=== PATIENT | female | born 1995 | race American Indian/Alaskan Native ===

== ENCOUNTER 2017-11-23 10:15 | Inpatient (IN) | payer MEDICAID ==
--- NOTE | 2017-11-23 11:00 | History and Physical Report ---
History of Present Illness Date of examination: 11/23/17 Chief complaint: Spontaneous rupture of membranes at 12 History of present illness: A 2-year-old at 39+5 weeks presents status post ruptured membranes, she is a [facility] patient. course has been unremarkable. She is GBS negative. 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 denies: smoking, alcohol abuse, prescription drug abuse, IV drug use - Obstetrical History Expected Date of Delivery: 11/27/17 Actual Gestation: 39 Week(s) 3 Day(s) : 1 Para: 0 Review of Systems Constitutional: no fever, no chills, no lethargy, no chronic headaches Cardiovascular: no chest pain, no orthopnea, no palpitations, no syncope, no lightheadedness, no shortness of breath, no dyspnea on exertion, no high blood pressure Respiratory: no cough, no cough with sputum, no excessive sputum, no shortness of breath, no dyspnea on exertion Gastrointestinal: no abdominal pain, no nausea, no vomiting Genitourinary: leakage of fluid, contractions, no vaginal bleeding, no vaginal discharge - Vital Signs Vital signs: Vital Signs Pulse BP Pulse Ox 119 H 130/79 98 11/23/17 10:33 11/23/17 10:33 11/23/17 10:33 Temp Pulse Resp BP Pulse Ox 111 H 130/79 97 11/23/17 10:58 11/23/17 10:33 11/23/17 10:58 - Physical Exam Cardiovascular: Regular rate, Normal S1, Normal S2 Lungs: Positive: Clear to auscultation, Normal air movement Abdomen: Positive: normal appearance, soft. Negative: distention, tenderness, guarding, rigidity Genitourinary (Female): Positive: normal external genitalia Uterus: Positive: enlarged (EFW ~ 3700). Negative: tender Extremities: Positive: normal - Obstetrical FHR: category 1 Cervical Dilatation: 3.5 (Per RN) Results All other labs normal. Assessment and Plan A: 22-year-old at 39 weeks s/p SROM -Cat 1 tracing P: -Admit -Routine labs -Expectant mgt -Anticipate normal vaginal delivery - Patient Problems (1) 39 weeks gestation of Current Visit: Yes Status: Acute (2) Spontaneous rupture of amniotic membranes Current Visit: Yes Status: Acute
[2017-11-23] MEDS ORDERED: SUBLIMAZE IV PRN (11:02)
[2017-11-23] MEDS ORDERED: XYLOCAINE 2% INFILTRATI ONE (11:02)
[2017-11-23] MEDS ORDERED: BRETHINE IVP PRN (11:02)
[2017-11-23] MEDS ORDERED: BRETHINE SUB-Q PRN (11:02)
[2017-11-23] MEDS ORDERED: PHENERGAN PO PRN (11:02)
[2017-11-23] MEDS ORDERED: ePHEDrine SULFATE IV PRN (11:02)
[2017-11-23] MEDS ORDERED: MINERAL OIL PO PRN (11:02)
[2017-11-23 11:18] LABS: Hematocrit 41.2 % (30.3-42.9); Hemoglobin 13.8 gm/dl (10.1-14.3); Mean Corpuscular HGB Conc 33 % (30-34); Mean Corpuscular Hemoglobin 27 pg (28-32); Mean Corpuscular Volume 81 fl (79-97); Platelet Count 273 K/mm3 (140-440); Red Blood Count 5.12 M/mm3 (3.65-5.03); Red Cell Distribution Width 15.9 % (13.2-15.2)
[2017-11-23] MEDS ORDERED: PITOCin/NS 20 UNIT/1000ML DRIP 20 UNITS/1,000 ML BAG IV SCH (12:00)
[2017-11-23] MEDS ORDERED: PITOCin/NS 30 UNIT/500ML 30 UNITS/500 ML BAG IV SCH (12:00)
[2017-11-23] MEDS ORDERED: POLYCILLIN/NS 2 GM/100 ML 2 GM/100 ML BAG IV ONE (12:30)
[2017-11-23] MEDS: ZOFRAN IV PRN (13:43)
[2017-11-23] MEDS: LACTATED RINGERS 1,000 ML IV SCH ×2 (13:44→21:25)
[2017-11-23] MEDS ORDERED: POLYCILLIN/NS 1 GM/50 ML 1 GM/50 ML BAG IV SCH (16:30)
--- NOTE | 2017-11-23 18:09 | Progress Note ---
Assessment and Plan - Patient Problems (1) 39 weeks gestation of Onset Date: 11/23/17 Current Visit: Yes Status: Acute Plan to address problem: A: IUP @ 39 5/7 weeks in labor P: Continue with pitocin augmentation of labor Expectant vaginal delivery Subjective - Subjective Date of service: 11/23/17 Principal diagnosis: IUP @ 39 5/7 weeks Interval history: Pt is currently on pitocin 8mu/min and cherelle q 2-3 mins with IV sedation Patient reports: new complaints, loss of fluid, movement normal, contractions, no vaginal bleeding Objective - Vital Signs Vital Signs: Vital Signs - 12hr 11/23/17 11/23/17 11/23/17 10:33 10:38 10:43 Temperature Pulse Rate 119 H 108 H 116 H Respiratory Rate Blood Pressure 130/79 O2 Sat by Pulse 98 97 98 Oximetry 11/23/17 11/23/17 11/23/17 10:48 10:53 10:58 Temperature Pulse Rate 107 H 96 H 111 H Respiratory Rate Blood Pressure O2 Sat by Pulse 98 98 97 Oximetry 11/23/17 11/23/17 11/23/17 11:03 11:12 11:19 Temperature 97.9 F Pulse Rate 118 H 110 H Respiratory 18 Rate Blood Pressure O2 Sat by Pulse 96 97 Oximetry 11/23/17 11/23/17 11/23/17 11:20 11:24 11:29 Temperature Pulse Rate 110 H 121 H 112 H Respiratory Rate Blood Pressure 134/75 O2 Sat by Pulse 97 97 Oximetry 11/23/17 11/23/17 11/23/17 11:34 11:39 11:44 Temperature Pulse Rate 112 H 107 H 115 H Respiratory Rate Blood Pressure O2 Sat by Pulse 96 98 95 Oximetry 11/23/17 11/23/17 11/23/17 11:49 11:54 11:59 Temperature Pulse Rate 110 H 109 H 116 H Respiratory Rate Blood Pressure O2 Sat by Pulse 97 97 96 Oximetry 11/23/17 11/23/17 11/23/17 12:04 12:09 12:14 Temperature Pulse Rate 109 H 116 H 111 H Respiratory Rate Blood Pressure O2 Sat by Pulse 97 97 97 Oximetry 11/23/17 11/23/17 11/23/17 12:19 12:24 12:29 Temperature Pulse Rate 121 H 126 H 120 H Respiratory Rate Blood Pressure O2 Sat by Pulse 97 96 96 Oximetry 11/23/17 11/23/17 11/23/17 12:34 12:39 12:44 Temperature Pulse Rate 121 H 109 H 113 H Respiratory Rate Blood Pressure O2 Sat by Pulse 97 95 98 Oximetry 11/23/17 11/23/17 11/23/17 12:49 12:54 12:59 Temperature Pulse Rate 108 H 119 H 112 H Respiratory Rate Blood Pressure O2 Sat by Pulse 97 98 97 Oximetry 11/23/17 11/23/17 11/23/17 13:04 13:09 13:14 Temperature Pulse Rate 111 H 117 H 115 H Respiratory Rate Blood Pressure O2 Sat by Pulse 98 97 97 Oximetry 11/23/17 11/23/17 11/23/17 13:19 13:24 13:29 Temperature Pulse Rate 118 H 125 H 110 H Respiratory Rate Blood Pressure O2 Sat by Pulse 98 96 96 Oximetry 11/23/17 11/23/17 11/23/17 13:34 13:39 13:44 Temperature Pulse Rate 104 H 113 H 100 H Respiratory Rate Blood Pressure O2 Sat by Pulse 96 96 97 Oximetry 11/23/17 11/23/17 11/23/17 14:51 14:56 15:01 Temperature Pulse Rate 105 H 103 H 101 H Respiratory Rate Blood Pressure O2 Sat by Pulse 96 97 97 Oximetry 11/23/17 11/23/17 11/23/17 15:06 15:11 15:16 Temperature Pulse Rate 102 H 107 H 107 H Respiratory Rate Blood Pressure O2 Sat by Pulse 96 96 97 Oximetry 11/23/17 11/23/17 11/23/17 15:21 15:26 15:31 Temperature Pulse Rate 109 H 115 H 114 H Respiratory Rate Blood Pressure O2 Sat by Pulse 97 96 96 Oximetry 11/23/17 11/23/17 11/23/17 15:36 15:41 15:46 Temperature Pulse Rate 111 H 112 H 105 H Respiratory Rate Blood Pressure O2 Sat by Pulse 97 96 97 Oximetry 11/23/17 11/23/17 11/23/17 15:51 15:56 16:01 Temperature Pulse Rate 115 H 115 H 100 H Respiratory Rate Blood Pressure O2 Sat by Pulse 97 96 96 Oximetry 11/23/17 11/23/17 11/23/17 16:06 16:11 16:16 Temperature Pulse Rate 110 H 110 H 116 H Respiratory Rate Blood Pressure O2 Sat by Pulse 97 97 97 Oximetry 11/23/17 11/23/17 11/23/17 16:21 16:26 16:31 Temperature Pulse Rate 105 H 111 H 100 H Respiratory Rate Blood Pressure O2 Sat by Pulse 98 97 97 Oximetry 11/23/17 11/23/17 11/23/17 16:36 16:41 16:46 Temperature Pulse Rate 106 H 111 H 111 H Respiratory Rate Blood Pressure O2 Sat by Pulse 97 96 94 Oximetry 11/23/17 11/23/17 11/23/17 16:51 16:56 17:01 Temperature Pulse Rate 124 H 109 H 109 H Respiratory Rate Blood Pressure O2 Sat by Pulse 97 97 97 Oximetry 11/23/17 11/23/17 11/23/17 17:06 17:11 17:16 Temperature Pulse Rate 106 H 113 H 116 H Respiratory Rate Blood Pressure O2 Sat by Pulse 95 96 96 Oximetry 11/23/17 11/23/17 11/23/17 17:21 17:26 17:31 Temperature Pulse Rate 124 H 115 H 109 H Respiratory Rate Blood Pressure O2 Sat by Pulse 96 96 97 Oximetry 11/23/17 11/23/17 11/23/17 17:36 17:41 17:46 Temperature Pulse Rate 135 H 116 H 122 H Respiratory Rate Blood Pressure O2 Sat by Pulse 97 97 97 Oximetry 11/23/17 11/23/17 11/23/17 17:51 17:56 18:01 Temperature Pulse Rate 118 H 125 H 139 H Respiratory Rate Blood Pressure O2 Sat by Pulse 96 96 94 Oximetry 11/23/17 18:06 Temperature Pulse Rate 137 H Respiratory Rate Blood Pressure O2 Sat by Pulse 96 Oximetry - Exam Breasts: deferred Cardiovascular: Regular rate Lungs: Clear to auscultation Abdomen: Present: normal appearance, soft Uterus: Present: normal FHR: category 1 Uterine Contraction Monitor Mode: External Cervical Dilatation: 2.5 Cervical Effacement Percentage: 80 station: -2 Uterine Contraction Pattern: Regular Uterine Tone Measurement Phase: Contraction Uterine Contraction Intensity: Moderate - Labs Labs: Abnormal Labs 11/23/17 10:55 RBC 5.12 H MCH 27 L RDW 15.9 H Laboratory Results - last 24 hr 11/23/17 11/23/17 11/23/17 10:55 10:55 10:55 WBC 9.9 RBC 5.12 H Hgb 13.8 Hct 41.2 MCV 81 MCH 27 L MCHC 33 RDW 15.9 H Plt Count 273 RPR Nonreactive Blood Type B POSITIVE Antibody Screen Negative
[2017-11-23] MEDS: ePHEDrine SULFATE IV PRN ×2 (21:56→22:06)
[2017-11-23] MEDS ORDERED: NARCAN 2 MG/2 ML IV PRN (21:57)
--- NOTE | 2017-11-23 21:57 | Anesthesia Consultation ---
Anesthesia Consult and Med Hx Date of service: 11/23/17 - Airway Anesthetic Teeth Evaluation: Good ROM Head & Neck: Adequate Mental/Hyoid Distance: Adequate Mallampati Class: Class II Intubation Access Assessment: Good - Pulmonary Exam CTA: Yes - Cardiac Exam Cardiac Exam: No Murmur - Pre-Operative Health Status ASA Pre-Surgery Classification: ASA2 Proposed Anesthetic Plan: Epidural - Pulmonary Hx Asthma: No COPD: No Hx Pneumonia: No - Cardiovascular System Hx Hypertension: No - Central Nervous System Hx Seizures: No Hx Psychiatric Problems: No - Endocrine Hx Renal Disease: No Hx End Stage Renal Disease: No Hx Hypothyroidism: No Hx Hyperthyroidism: No - Hematic Hx Sickle Cell Disease: No - Other Systems Hx Alcohol Use: No
[2017-11-23] MEDS ORDERED: fentaNYL-BUPIV 2 MCG/ML-0.125% 200 MCG/100 ML BAG EPIDURAL SCH (22:00)
[2017-11-24] MEDS ORDERED: TYLENOL PO ONE (00:50)
[2017-11-24] MEDS: POLYCILLIN/NS 1 GM/50 ML 1 GM/50 ML BAG IV SCH ×2 (01:30→07:19)
[2017-11-24] MEDS: ZOFRAN IV PRN (02:44)
[2017-11-24] MEDS: LACTATED RINGERS 1,000 ML IV SCH ×3 (04:18→20:44)
[2017-11-24] MEDS ORDERED: ceFAZolin 1 GM in NACL 0.9% 20 ML IV SCH (06:00)
[2017-11-24] MEDS ORDERED: BICITRA PO ONE (08:38)
[2017-11-24] MEDS ORDERED: REGLAN IV ONE (08:38)
[2017-11-24] MEDS ORDERED: PEPCID IV ONE (08:38)
--- NOTE | 2017-11-24 08:47 | Progress Note ---
Assessment and Plan - Patient Problems (1) 39 weeks gestation of Onset Date: 11/23/17 Current Visit: Yes Status: Acute Plan to address problem: A: IUP @ 39 6/7 weeks in labor Failure to progress Chorioamnionitis P: Will proceed with an Operative delivery Subjective - Subjective Date of service: 11/24/17 Principal diagnosis: IUP @ 39 6/7 weeks; Chorio; FTP Interval history: Pt is currently on pitocin 8mu/min and cherelle q 2-[address] in [address]. Patient reports: new complaints (fever), loss of fluid, movement normal, contractions, no vaginal bleeding Objective - Vital Signs Vital Signs: Vital Signs - 12hr 11/23/17 11/23/17 11/23/17 20:46 20:47 20:51 Temperature Pulse Rate 119 H 121 H 124 H Respiratory Rate Blood Pressure Blood Pressure [Left] O2 Sat by Pulse 95 93 97 Oximetry 11/23/17 11/23/17 11/23/17 20:56 20:57 21:01 Temperature Pulse Rate 120 H 121 H 117 H Respiratory Rate Blood Pressure Blood Pressure [Left] O2 Sat by Pulse 96 94 93 Oximetry 11/23/17 11/23/17 11/23/17 21:03 21:06 21:20 Temperature Pulse Rate 114 H 122 H 128 H Respiratory Rate Blood Pressure Blood Pressure [Left] O2 Sat by Pulse 94 96 98 Oximetry 11/23/17 11/23/17 11/23/17 21:24 21:25 21:30 Temperature 98.6 F Pulse Rate 117 H 125 H 134 H Respiratory 20 Rate Blood Pressure 144/85 Blood Pressure [Left] O2 Sat by Pulse 97 97 Oximetry 11/23/17 11/23/17 11/23/17 21:35 21:40 21:45 Temperature Pulse Rate 123 H 138 H 138 H Respiratory Rate Blood Pressure Blood Pressure [Left] O2 Sat by Pulse 98 97 97 Oximetry 11/23/17 11/23/17 11/23/17 21:50 21:55 21:56 Temperature Pulse Rate 136 H 130 H 120 H Respiratory Rate Blood Pressure 139/69 Blood Pressure [Left] O2 Sat by Pulse 97 98 Oximetry 11/23/17 11/23/17 11/23/17 21:57 22:00 22:05 Temperature Pulse Rate 131 H 118 H 158 H Respiratory Rate Blood Pressure 104/71 95/68 Blood Pressure [Left] O2 Sat by Pulse 97 100 Oximetry 11/23/17 11/23/17 11/23/17 22:07 22:10 22:12 Temperature Pulse Rate 148 H 143 H 155 H Respiratory Rate Blood Pressure 99/53 154/131 Blood Pressure [Left] O2 Sat by Pulse 100 Oximetry 11/23/17 11/23/17 11/23/17 22:15 22:20 22:22 Temperature Pulse Rate 124 H 125 H 98 H Respiratory Rate Blood Pressure 184/122 Blood Pressure [Left] O2 Sat by Pulse 100 100 Oximetry 11/23/17 11/23/17 11/23/17 22:25 22:30 22:35 Temperature Pulse Rate 120 H 135 H 132 H Respiratory Rate Blood Pressure 99/50 Blood Pressure [Left] O2 Sat by Pulse 100 100 100 Oximetry 11/23/17 11/23/17 11/23/17 22:37 22:40 22:45 Temperature Pulse Rate 110 H 119 H 110 H Respiratory Rate Blood Pressure 73/40 123/54 Blood Pressure [Left] O2 Sat by Pulse 100 99 Oximetry 11/23/17 11/23/17 11/23/17 22:46 22:50 22:52 Temperature Pulse Rate 120 H 139 H 113 H Respiratory Rate Blood Pressure Blood Pressure [Left] O2 Sat by Pulse 93 96 94 Oximetry 11/23/17 11/23/17 11/23/17 22:53 22:55 23:00 Temperature Pulse Rate 122 H 121 H 129 H Respiratory Rate Blood Pressure 110/51 Blood Pressure [Left] O2 Sat by Pulse 96 98 Oximetry 11/23/17 11/23/17 11/23/17 23:05 23:10 23:15 Temperature Pulse Rate 141 H 156 H 132 H Respiratory Rate Blood Pressure Blood Pressure [Left] O2 Sat by Pulse 97 96 96 Oximetry 11/23/17 11/23/17 11/23/17 23:20 23:23 23:25 Temperature Pulse Rate 132 H 125 H 125 H Respiratory Rate Blood Pressure 115/55 Blood Pressure [Left] O2 Sat by Pulse 96 95 Oximetry 11/23/17 11/23/17 11/23/17 23:30 23:35 23:39 Temperature 99.6 F Pulse Rate 125 H 122 H 121 H Respiratory 20 Rate Blood Pressure 115/64 Blood Pressure [Left] O2 Sat by Pulse 95 95 Oximetry 11/23/17 11/23/17 11/23/17 23:40 23:41 23:45 Temperature Pulse Rate 119 H 121 H 124 H Respiratory Rate Blood Pressure Blood Pressure [Left] O2 Sat by Pulse 94 94 94 Oximetry 11/23/17 11/23/17 11/23/17 23:50 23:52 23:55 Temperature Pulse Rate 125 H 127 H 117 H Respiratory Rate Blood Pressure 115/59 Blood Pressure [Left] O2 Sat by Pulse 94 94 Oximetry 11/23/17 11/24/17 11/24/17 23:58 00:00 00:03 Temperature Pulse Rate 120 H 129 H 119 H Respiratory Rate Blood Pressure Blood Pressure [Left] O2 Sat by Pulse 94 97 93 Oximetry 11/24/17 11/24/17 11/24/17 00:05 00:10 00:14 Temperature Pulse Rate 124 H 132 H 127 H Respiratory Rate Blood Pressure 122/59 Blood Pressure [Left] O2 Sat by Pulse 96 96 94 Oximetry 11/24/17 11/24/17 11/24/17 00:15 00:19 00:20 Temperature Pulse Rate 126 H 133 H 125 H Respiratory Rate Blood Pressure Blood Pressure [Left] O2 Sat by Pulse 94 93 97 Oximetry 11/24/17 11/24/17 11/24/17 00:24 00:25 00:30 Temperature Pulse Rate 126 H 128 H 129 H Respiratory Rate Blood Pressure 116/59 Blood Pressure [Left] O2 Sat by Pulse 94 96 Oximetry 11/24/17 11/24/17 11/24/17 00:35 00:40 00:45 Temperature Pulse Rate 152 H 87 123 H Respiratory Rate Blood Pressure Blood Pressure [Left] O2 Sat by Pulse 98 98 99 Oximetry 11/24/17 11/24/17 11/24/17 00:50 00:53 00:55 Temperature Pulse Rate 129 H 117 H 111 H Respiratory Rate Blood Pressure 93/49 Blood Pressure [Left] O2 Sat by Pulse 99 99 Oximetry 11/24/17 11/24/17 11/24/17 01:00 01:05 01:08 Temperature Pulse Rate 122 H 129 H 110 H Respiratory Rate Blood Pressure 92/51 Blood Pressure [Left] O2 Sat by Pulse 100 99 Oximetry 11/24/17 11/24/17 11/24/17 01:10 01:15 01:20 Temperature Pulse Rate 121 H 123 H 112 H Respiratory Rate Blood Pressure Blood Pressure [Left] O2 Sat by Pulse 99 98 99 Oximetry 11/24/17 11/24/17 11/24/17 01:24 01:25 01:30 Temperature 99.5 F Pulse Rate 107 H 106 H 108 H Respiratory 20 Rate Blood Pressure 96/50 Blood Pressure [Left] O2 Sat by Pulse 100 99 Oximetry 11/24/17 11/24/17 11/24/17 01:31 01:35 01:39 Temperature Pulse Rate 115 H 122 H Respiratory 18 Rate Blood Pressure 100/54 Blood Pressure [Left] O2 Sat by Pulse 100 Oximetry 11/24/17 11/24/17 11/24/17 01:40 01:45 01:50 Temperature Pulse Rate 112 H 101 H 114 H Respiratory Rate Blood Pressure Blood Pressure [Left] O2 Sat by Pulse 98 98 98 Oximetry 11/24/17 11/24/17 11/24/17 01:54 01:55 02:00 Temperature Pulse Rate 109 H 102 H 99 H Respiratory Rate Blood Pressure 104/51 Blood Pressure [Left] O2 Sat by Pulse 100 98 Oximetry 11/24/17 11/24/17 11/24/17 02:05 02:08 02:10 Temperature Pulse Rate 113 H 105 H 116 H Respiratory Rate Blood Pressure 101/54 Blood Pressure [Left] O2 Sat by Pulse 99 98 Oximetry 11/24/17 11/24/17 11/24/17 02:15 02:20 02:23 Temperature Pulse Rate 101 H 125 H 114 H Respiratory Rate Blood Pressure 98/54 Blood Pressure [Left] O2 Sat by Pulse 99 100 Oximetry 11/24/17 11/24/17 11/24/17 02:25 02:30 02:35 Temperature Pulse Rate 134 H 142 H 130 H Respiratory Rate Blood Pressure Blood Pressure [Left] O2 Sat by Pulse 99 99 100 Oximetry 11/24/17 11/24/17 11/24/17 02:40 02:45 02:50 Temperature Pulse Rate 132 H 157 H 157 H Respiratory Rate Blood Pressure Blood Pressure [Left] O2 Sat by Pulse 100 100 98 Oximetry 11/24/17 11/24/17 11/24/17 02:55 03:00 03:05 Temperature Pulse Rate 150 H 142 H 145 H Respiratory Rate Blood Pressure Blood Pressure [Left] O2 Sat by Pulse 97 97 97 Oximetry 11/24/17 11/24/1711/24/18 03:08 03:10 03:15 Temperature Pulse Rate 150 H 139 H 151 H Respiratory Rate Blood Pressure 119/65 Blood Pressure [Left] O2 Sat by Pulse 97 97 Oximetry 11/24/17 11/24/17 11/24/17 03:20 03:23 03:25 Temperature Pulse Rate 150 H 150 H 150 H Respiratory Rate Blood Pressure 91/45 Blood Pressure [Left] O2 Sat by Pulse 96 96 Oximetry 11/24/17 11/24/17 11/24/17 03:30 03:35 03:38 Temperature Pulse Rate 143 H 141 H 140 H Respiratory Rate Blood Pressure Blood Pressure [Left] O2 Sat by Pulse 97 97 94 Oximetry 11/24/17 11/24/17 11/24/17 03:40 03:45 03:48 Temperature Pulse Rate 141 H 131 H 135 H Respiratory Rate Blood Pressure Blood Pressure [Left] O2 Sat by Pulse 95 97 94 Oximetry 11/24/17 11/24/17 11/24/17 03:50 03:53 03:55 Temperature Pulse Rate 136 H 137 H 131 H Respiratory Rate Blood Pressure 108/52 Blood Pressure [Left] O2 Sat by Pulse 96 95 Oximetry 11/24/17 11/24/17 11/24/17 04:00 04:05 04:08 Temperature Pulse Rate 123 H 129 H 133 H Respiratory Rate Blood Pressure 105/53 Blood Pressure [Left] O2 Sat by Pulse 95 94 Oximetry 11/24/17 11/24/17 11/24/17 04:10 04:15 04:20 Temperature Pulse Rate 133 H 124 H 138 H Respiratory Rate Blood Pressure Blood Pressure [Left] O2 Sat by Pulse 95 97 96 Oximetry 11/24/17 11/24/17 11/24/17 04:23 04:25 04:30 Temperature Pulse Rate 131 H 125 H 124 H Respiratory Rate Blood Pressure 113/61 Blood Pressure [Left] O2 Sat by Pulse 93 94 Oximetry 11/24/17 11/24/17 11/24/17 04:31 04:35 04:37 Temperature Pulse Rate 126 H 118 H 141 H Respiratory Rate Blood Pressure 119/62 Blood Pressure [Left] O2 Sat by Pulse 93 94 Oximetry 11/24/17 11/24/17 11/24/17 04:38 04:40 04:43 Temperature Pulse Rate 141 H 132 H 131 H Respiratory Rate Blood Pressure Blood Pressure [Left] O2 Sat by Pulse 94 93 93 Oximetry 11/24/17 11/24/17 11/24/17 04:45 04:50 04:51 Temperature Pulse Rate 131 H 127 H 130 H Respiratory Rate Blood Pressure Blood Pressure [Left] O2 Sat by Pulse 93 95 93 Oximetry 11/24/17 11/24/17 11/24/17 04:54 04:55 05:00 Temperature Pulse Rate 129 H 117 H 118 H Respiratory Rate Blood Pressure 116/63 Blood Pressure [Left] O2 Sat by Pulse 94 96 Oximetry 11/24/17 11/24/17 11/24/17 05:05 05:07 05:08 Temperature Pulse Rate 128 H 120 H 126 H Respiratory Rate Blood Pressure 108/57 Blood Pressure [Left] O2 Sat by Pulse 95 94 Oximetry 11/24/17 11/24/17 11/24/17 05:10 05:13 05:15 Temperature Pulse Rate 121 H 121 H 127 H Respiratory Rate Blood Pressure Blood Pressure [Left] O2 Sat by Pulse 95 94 93 Oximetry 11/24/17 11/24/17 11/24/17 05:20 05:24 05:25 Temperature Pulse Rate 139 H 130 H 120 H Respiratory Rate Blood Pressure 105/54 Blood Pressure [Left] O2 Sat by Pulse 95 94 Oximetry 11/24/17 11/24/17 11/24/17 05:29 05:30 05:35 Temperature Pulse Rate 120 H 137 H 148 H Respiratory Rate Blood Pressure Blood Pressure [Left] O2 Sat by Pulse 94 97 95 Oximetry 11/24/17 11/24/17 11/24/17 05:37 05:39 05:40 Temperature Pulse Rate 125 H 125 H 131 H Respiratory Rate Blood Pressure 106/50 Blood Pressure [Left] O2 Sat by Pulse 94 95 Oximetry 11/24/17 11/24/17 11/24/17 05:45 05:50 05:53 Temperature Pulse Rate 125 H 139 H 133 H Respiratory Rate Blood Pressure 114/52 Blood Pressure [Left] O2 Sat by Pulse 95 95 Oximetry 11/24/17 11/24/17 11/24/17 05:55 06:00 06:05 Temperature Pulse Rate 136 H 125 H 131 H Respiratory Rate Blood Pressure Blood Pressure [Left] O2 Sat by Pulse 96 96 95 Oximetry 11/24/17 11/24/17 11/24/17 06:08 06:09 06:10 Temperature Pulse Rate 137 H 127 H 139 H Respiratory Rate Blood Pressure 106/53 Blood Pressure [Left] O2 Sat by Pulse 94 94 Oximetry 11/24/17 11/24/17 11/24/17 06:15 06:20 06:23 Temperature Pulse Rate 125 H 149 H 130 H Respiratory Rate Blood Pressure 112/56 Blood Pressure [Left] O2 Sat by Pulse 95 96 Oximetry 11/24/17 11/24/17 11/24/17 06:24 06:25 06:29 Temperature Pulse Rate 149 H 133 H 129 H Respiratory Rate Blood Pressure Blood Pressure [Left] O2 Sat by Pulse 93 95 93 Oximetry 11/24/17 11/24/17 11/24/17 06:30 06:35 06:38 Temperature Pulse Rate 122 H 127 H 131 H Respiratory Rate Blood Pressure 105/52 Blood Pressure [Left] O2 Sat by Pulse 94 95 Oximetry 11/24/17 11/24/17 11/24/17 06:40 06:45 06:50 Temperature Pulse Rate 152 H 131 H 133 H Respiratory Rate Blood Pressure Blood Pressure [Left] O2 Sat by Pulse 95 95 96 Oximetry 11/24/17 11/24/17 11/24/17 06:53 06:55 07:00 Temperature Pulse Rate 131 H 136 H 138 H Respiratory Rate Blood Pressure 109/53 Blood Pressure [Left] O2 Sat by Pulse 97 97 Oximetry 11/24/17 11/24/17 11/24/17 07:05 07:10 07:12 Temperature 101.5 F H Pulse Rate 127 H 120 H Respiratory Rate Blood Pressure Blood Pressure [Left] O2 Sat by Pulse 95 97 Oximetry 11/24/17 11/24/17 11/24/17 07:15 07:20 07:24 Temperature Pulse Rate 124 H 127 H 122 H Respiratory Rate Blood Pressure 115/59 Blood Pressure [Left] O2 Sat by Pulse 96 96 Oximetry 11/24/17 11/24/17 11/24/17 07:25 07:29 07:33 Temperature 100 F H Pulse Rate 128 H 141 H 133 H Respiratory 18 Rate Blood Pressure 96/51 Blood Pressure 104/75 [Left] O2 Sat by Pulse 96 Oximetry 11/24/17 11/24/17 11/24/17 07:34 07:53 08:23 Temperature Pulse Rate 141 H 133 H 123 H Respiratory Rate Blood Pressure 104/75 108/55 107/54 Blood Pressure [Left] O2 Sat by Pulse Oximetry - Exam Breasts: deferred Cardiovascular: Regular rate Lungs: Clear to auscultation Abdomen: Present: normal appearance Uterus: Present: normal FHR: category 1 Uterine Contraction Monitor Mode: External Cervical Dilatation: 4 Cervical Effacement Percentage: 90 station: -1 Uterine Contraction Pattern: Regular Uterine Tone Measurement Phase: Contraction Uterine Contraction Intensity: Strong/Firm - Labs Labs: Abnormal Labs 11/23/17 10:55 RBC 5.12 H MCH 27 L RDW 15.9 H Laboratory Results - last 24 hr 11/23/17 11/23/17 11/23/17 10:55 10:55 10:55 WBC 9.9 RBC 5.12 H Hgb 13.8 Hct 41.2 MCV 81 MCH 27 L MCHC 33 RDW 15.9 H Plt Count 273 RPR Nonreactive Blood Type B POSITIVE Antibody Screen Negative
--- NOTE | 2017-11-24 08:50 | Anesthesia Day of Surgery ---
Anesthesia Day of Surgery - Day of Surgery Patient Examined: Yes Patient H&P Reviewed: Yes Patient is NPO: Yes
[2017-11-24] MEDS ORDERED: PITOCin/NS 20 UNIT/1000ML DRIP 20 UNITS/1,000 ML BAG IV SCH ×2 (09:00→11:00)
[2017-11-24] MEDS ORDERED: ANCEF/STERILE WATER 2 GM/20 ML 2 GM/20 ML SYRINGE IV NR (09:00)
[2017-11-24] MEDS ORDERED: LACTATED RINGERS 1,000 ML IV SCH (09:00)
[2017-11-24] MEDS ORDERED: ANCEF/STERILE WATER 2 GM/20 ML IV ONE (09:25)
[2017-11-24] MEDS ORDERED: NACL 0.9% IR ONE (09:34)
[2017-11-24] MEDS ORDERED: WATER FOR IRRIG STERILE IR ONE (09:34)
[2017-11-24] MEDS ORDERED: METHERGINE IM ONE (09:49)
[2017-11-24] MEDS ORDERED: MORPHINE ONE ×2 (10:10)
--- NOTE | 2017-11-24 10:21 | Operative Report ---
Operative Report Operative Report: Date of procedure: 11/24/2017 Pre-operative diagnosis: 1. Intrauterine at 39-6/7 weeks in labor 2. Failure to progress 3. Chorioamnionitis Post-operative diagnosis: Same Procedure name(s): Primary low transverse section Surgeon: Amaury Stover MD Administrative Analyst: None Anesthesia: Epidural anesthesia by Dr. Davis EBL: 700mls Findings: A 3583 g male Apgars 7 at 1 minute and 9 at 5 minutes. Clear amniotic fluid. Normal uterus. Normal tubes and ovaries bilaterally. Procedure: After the patient was prepped and draped in usual sterile fashion, and after satisfactory level of epidural anesthesia was obtained, the skin knife was used to make a transverse skin incision. The incision was excised down to layer of the fascia, which was nicked in the midline and extended laterally using the Bovie cautery. The rectus muscles were dissected off the rectus fascia both superiorly and inferiorly. The rectus bellies in the midline, and the peritoneum was entered under direct visualization. The peritoneal incision was extended superiorly and inferiorly. A bladder flap was created and the bladder blade was then placed. The uterus was scored in a curvilinear linear fashion, entered in the midline revealing clear amniotic fluid. The infant's head was delivered onto the surgical field, and the oropharynx and nasopharynx were bulb suctioned. The rest of the 's body was delivered, cord was doubly clamped and cut and the infant was handed to the waiting respiratory team. The placenta was manually removed from the uterus, and the uterus removed from its normal anatomical position. After gentle uterine lavage, the incision was inspected and found to be without extensions. It was then closed in 2 layers using 0 Vicryl suture in a running interlocking fashion, the second layer imbricating the first. After good hemostasis was achieved, copious amounts or irrigation was performed, and the gutters were suctioned free of blood and blood clots. Tisseel sealant was sprayed across the uterine incision. The uterus was then returned to its normal anatomical position, and after excellent hemostasis assured, the peritoneum was re- approximated using 3-0 Vicryl suture in a running interlocking fashion, and then the rectus muscles were re-approximated using 3-0 Vicryl suture in a figure -of-eight configuration. The fascia was then re-approximated using 0 Vicryl suture in running interlocking fashion. The subcutaneous layer was made hemostatic using Bovie cautery, the Tisseel sealant was sprayed across the fascial incision and the skin edges re-approximated using 4-0 Vicryl suture in a sub-cuticular fashion. Patient tolerated the procedure well was transported to recovery in stable condition.
[2017-11-24] MEDS ORDERED: TORADOL IV PRN (10:22)
[2017-11-24] MEDS ORDERED: TUCKS PAD TP PRN (10:22)
[2017-11-24] MEDS ORDERED: SENOKOT PO PRN (10:22)
[2017-11-24] MEDS ORDERED: PHENERGAN PR PRN (10:22)
[2017-11-24] MEDS ORDERED: NARCAN 0.4 MG/1 ML IV PRN (10:22)
[2017-11-24] MEDS ORDERED: NORCO 5/325 PO PRN (10:22)
[2017-11-24] MEDS ORDERED: MILK OF MAGNESIA PO PRN (10:22)
[2017-11-24] MEDS ORDERED: TYLENOL PO PRN (10:22)
[2017-11-24] MEDS ORDERED: LANSINOH TP PRN (10:22)
[2017-11-24] MEDS ORDERED: XYLOCAINE MPF 2% ONE (10:36)
[2017-11-24] MEDS ORDERED: D5LR 1,000 ML IV SCH (11:00)
[2017-11-24] MEDS ORDERED: SODIUM CHLORIDE FLUSH SYRINGE 10 ML IV NR ×2 (11:00→13:00)
[2017-11-24] MEDS ORDERED: ANCEF/NS 1 GM/50 ML 1 GM/50 ML BAG IV SCH ×2 (11:00→18:00)
[2017-11-24] MEDS ORDERED: GARAMYCIN/NS 80 MG/100 ML 100 ML IV SCH (12:00)
[2017-11-24] MEDS ORDERED: BENADRYL IV PRN (12:51)
--- NOTE | 2017-11-24 12:52 | Post Anesthesia Evaluation ---
- Post Anesthesia Evaluation Patient Participated: Yes Airway Patent: Yes Stable Respiratory Function: Yes Nausea/Vomiting: No Temp > 96.8F: Yes Pain Manageable: Yes Adequeate Hydration: Yes Anesthesia Complications: No Block Receding Appropriately: Yes Patient on Ventilator: No
[2017-11-24] MEDS: GARAMYCIN/NS 80 MG/100 ML 100 ML IV SCH ×2 (15:30→22:41)
[2017-11-24 23:06] LABS: Hematocrit 32.6 % (30.3-42.9); Hemoglobin 10.4 gm/dl (10.1-14.3)
[2017-11-25] MEDS: ceFAZolin 1 GM in NACL 0.9% 20 ML IV SCH ×2 (04:41→13:06)
[2017-11-25] MEDS: LACTATED RINGERS 1,000 ML IV SCH (04:48)
[2017-11-25] MEDS: GARAMYCIN/NS 80 MG/100 ML 100 ML IV SCH ×3 (05:57→14:00)
[2017-11-25] MEDS ORDERED: BOOSTRIX IM ONE (06:00)
[2017-11-25] MEDS ORDERED: M-M-R II VACCINE SUB-Q ONE (06:00)
--- NOTE | 2017-11-25 11:09 | Progress Note ---
Subjective Date of service: 11/25/17 Principal diagnosis: IUP @ 39 6/7 weeks; Chorio; FTP Interval history: No anesthetic related complaints. Objective - Constitutional Vitals: Vital Signs - 12hr 11/25/17 11/25/17 11/25/17 03:18 03:20 07:49 Temperature 99.6 F 98.5 F Pulse Rate 127 H 101 H Respiratory 20 18 18 Rate Blood Pressure 109/62 116/73 O2 Sat by Pulse 97 Oximetry - Labs CBC & Chem 7: 11/24/17 22:52
--- NOTE | 2017-11-25 11:48 | Progress Note ---
Assessment and Plan - Patient Problems (1) 39 weeks gestation of Onset Date: 11/23/17 Current Visit: Yes Status: Resolved (2) Status post Onset Date: 11/25/17 Current Visit: Yes Status: Resolved Plan to address problem: A: S/P C Section - POD #1 Doing well Chorio - improved on antibiotics P: Continue RPOC Continue IV antibiotics Subjective - Subjective Date of service: 11/25/17 Principal diagnosis: s/p C Section - POD #1 Interval history: Pt is feeling well without complaints. Bleeding improved. Patient reports: appetite normal, voiding normally, pain well controlled, flatus , ambulating normally [place]: doing well, bottle feeding Objective - Vital Signs Latest vital signs: Vital Signs Temp Pulse Resp BP BP Pulse Ox 11/25/17 07:49 98.5 F 101 H 18 116/73 97 11/25/17 03:20 18 11/25/17 03:18 99.6 F 127 H 20 109/62 11/24/17 20:53 100.7 F H 98 H 20 96/54 97 11/24/17 17:32 98.5 F 110 H 20 88/69 Intake and Output 11/24/17 11/25/17 11/25/17 22:59 06:59 14:59 Intake Total 1940 1560 Output Total 1000 Balance 940 1560 Intake: IV 1100 1200 Garamycin/Ns 80 mg/100 ml 100 200 100 ml @ 200 mls/hr IV Q8H PRAVIN Rx#:[id number] Lactated Ringers 1,000 ml 1000 1000 @ 125 mls/hr IV DIRECT PRAVIN Rx#:[id number] Oral 720 360 Intake, Free Water 120 Output: Urine 1000 Indwelling Catheter 1000 Other: Total, Intake Amount 240 360 Total, Output Amount 600 # Voids Void 1 - Exam Breasts: Present: deferred Cardiovascular: Present: Regular rate Abdomen: Present: normal appearance, soft Uterus: Present: normal, firm, fundal height below umbilicus Extremities: Present: normal Incision: Present: normal, dry, intact, dressed - Labs Labs: Laboratory Tests 11/23/17 11/23/17 11/23/17 10:55 10:55 10:55 WBC 9.9 RBC 5.12 H Hgb 13.8 Hct 41.2 MCV 81 MCH 27 L MCHC 33 RDW 15.9 H Plt Count 273 RPR Nonreactive Blood Type B POSITIVE Antibody Screen Negative 11/24/17 22:52 WBC RBC Hgb 10.4 D Hct 32.6 D MCV MCH MCHC RDW Plt Count RPR Blood Type Antibody Screen
[2017-11-25] MEDS: PRENATAL VITAMIN PO SCH (13:07)
[2017-11-25] MEDS: FEOSOL PO SCH (13:07)
[2017-11-25] MEDS: PERCOCET 5/325 PO PRN (16:54)
[2017-11-25] MEDS: MOTRIN PO PRN (16:54)
[2017-11-25] MEDS ORDERED: ceFAZolin 1 GM in NACL 0.9% 20 ML IV SCH (21:00)
[2017-11-26] MEDS: PERCOCET 5/325 PO PRN (06:48)
--- NOTE | 2017-11-26 11:20 | Progress Note ---
Assessment and Plan - Patient Problems (1) 39 weeks gestation of Onset Date: 11/23/17 Current Visit: Yes Status: Resolved (2) Status post Onset Date: 11/25/17 Current Visit: Yes Status: Resolved Plan to address problem: A: S/P C Section - POD #2 Doing well Chorio - resolved P: May go home today Rx for Ampicillin/Flagyl given. Subjective - Subjective Date of service: 11/26/17 Principal diagnosis: s/p C Section - POD #2 Interval history: Pt is feeling well without complaints. Bleeding improved. Tolerating a reg diet without nausea or vomiting, ambulating and voiding without difficulty. Patient reports: appetite normal, voiding normally, pain well controlled, flatus , ambulating normally, no nauseated [place]: doing well, bottle feeding Objective - Vital Signs Latest vital signs: Vital Signs Temp Pulse Resp BP Pulse Ox 11/26/17 07:19 98.7 F 88 20 92/51 97 11/26/17 00:03 98.3 F 84 18 101/59 96 11/25/17 16:26 98.3 F 107 H 18 121/75 98 Intake and Output 11/25/17 11/26/17 11/26/17 22:59 06:59 14:59 Intake Total 600 480 120 Balance 600 480 120 Intake: Oral 360 480 120 Intake, Free Water 240 Other: Total, Intake Amount 360 480 120 # Voids Void 2 2 1 # Bowel Movements 0 0 - Exam Breasts: Present: deferred Cardiovascular: Present: Regular rate Lungs: Present: Clear to auscultation Abdomen: Present: normal appearance, soft Uterus: Present: normal, firm, fundal height below umbilicus Extremities: Present: normal Incision: Present: normal, dry, intact
--- NOTE | 2017-11-26 11:27 | Discharge Summary ---
Providers - Providers Date of Admission: 11/23/17 10:16 Date of discharge: 11/26/17 Attending physician: MO RASMUSSEN Primary care physician: MO RASMUSSEN Hospitalization Reason for admission: active labor, rupture of membranes, IUP at term Delivery: Procedure: section, primary low transverse Episiotomy: none Laceration: none Incision: normal, dry, intact Other procedures: none complications: other (chorio) Discharge diagnosis: IUP at term delivered baby: male Hospital course: Pt is a 22yo BF EDC 11/27/17; EGA 39 03/25 who presented to L&D in labor, but she developed chorioamnionitis and failed to progress and was delivered by C Section. By POD #2 she was tolerating a reg diet without nausea or vomiting, ambulating and voiding without difficulty. She was therefore discharged to home on POD #2 in stable condition. Condition at discharge: Good Disposition: DC-01 TO HOME OR SELFCARE - Discharge Diagnoses (1) 39 weeks gestation of Status: Resolved (2) Status post Status: Resolved (3) Chorioamnionitis, delivered, current hospitalization Status: Resolved Plan - Discharge Medications Prescriptions: Ampicillin [Polycillin] 500 mg PO Q6H #20 capsule Ferrous Sulfate [Feosol 325 MG tab] 325 mg PO BID 30 Days #60 tablet HYDROcodone/APAP 5-325 [[place] 5/325] 1 each PO Q6HR PRN #30 tablet PRN Reason: Pain Ibuprofen [Motrin] 800 mg PO Q8HR PRN #30 tablet PRN Reason: Moder Pain Unrelieved By [place] metroNIDAZOLE [Flagyl] 500 mg PO Q12HR #10 tab Vit Calc,Iron,Folic [ Vitamins] 1 each PO DAILY #30 tablet - Provider Discharge Summary Activity: routine, no sex for 6 weeks, no heavy lifting 4 weeks, no strenuous exercise Diet: routine Instructions: routine Additional instructions: [] Smoking cessation referral if applicable(refer to patient education folder for contact #) [] Refer to [facility] Booklet Call your doctor immediately for: * Fever > 100.5 * Heavy vaginal bleeding ( >1 pad per hour) * Severe persistent headache * Shortness of breath * Reddened, hot, painful area to leg or breast * Drainage or odor from incision. * Keep incision clean and dry at all times and follow doctor's instructions regarding bathing/showering - Follow up plan Follow up: MO RASMUSSEN MD [Primary Care Provider] - 14 Days
[2017-11-26] MEDS: PRENATAL VITAMIN PO SCH (12:49)
[2017-11-26] MEDS: FEOSOL PO SCH (12:49)
[2017-11-26] MEDS: MOTRIN PO PRN (12:50)
[2017-11-26 21:25] VITALS: BP 106/52
== END 2017-11-26 20:35 | disposition home or self-care (01) | DRG 765 ==
LOC: TRG 10:15 → LD 10:16 → TRG 10:16 → OB 11-24 12:03
PROVIDERS: ADMIT Obstetrics & Gynecology; ATTEND Obstetrics & Gynecology
PROC: 10D00Z1 Extraction of Products of Conception, Low, Open Approach (ICD-10-PCS; principal; 2017-11-24)
PROC: 3E0234Z Introduction of Serum, Toxoid and Vaccine into Muscle, Percutaneous Approach (ICD-10-PCS; 2017-11-25)
DX: O61.9 Failed induction of labor, unspecified (principal); O41.1230 Chorioamnionitis, third trimester, not applicable or unspecified; Z3A.39 39 weeks gestation of pregnancy; Z37.0 Single live birth; Z23 Encounter for immunization
CPT/HCPCS: 36415; 85014; 85018; 85027; 86592; 86850; 86900; 86901; 99211; C9250; G0463; J0290; J0690; J1200; J1580; J1885; J2210; J2270; J2405; J2590; J2765; J3010; J7120; Q0169

== ENCOUNTER 2019-12-02 14:45 | Inpatient (IN) | payer MEDICAID ==
[2019-12-02] MEDS ORDERED: METOCLOPRAMIDE 10 MG/2 ML INJ IV SCH (15:36)
[2019-12-02] MEDS ORDERED: BICITRA ORAL LIQD 30ML PO SCH (15:36)
--- NOTE | 2019-12-02 15:36 | History and Physical Report ---
History of Present Illness Date of examination: 12/02/19 Chief complaint: Repeat C Section History of present illness: Pt is a 24yo BF EDC 12/13/19; EGA 38 3/7 weeks presents to L&D from [facility] for delivery due to decreased movement and Morbid obesity. She was seen in the office today, and u/s showed echogenic amniotic fluid. She received care at [facility] since 12 weeks and co-managed by [facility] for Obesity and previous C Section. records are available and GBS is Positive. Past History Past Medical History: no pertinent history Past Surgical History: section Social history: no significant social history, - Obstetrical History Expected Date of Delivery: 12/13/19 Actual Gestation: 38 Week(s) 3 Day(s) : 1 Medications and Allergies Allergies Allergy/AdvReac Type Severity Reaction Status Date / Time No Known Allergies Allergy Unverified 11/23/17 11:13 Home Medications Medication Instructions Recorded Confirmed Last Taken Type Ferrous Sulfate [Feosol 325 MG tab] 325 mg PO BID 30 Days #60 tablet 11/24/17 Unknown Rx HYDROcodone/APAP 5-325 [[place] 1 each PO Q6HR PRN #30 tablet 11/24/17 Unknown Rx 5/325] Ibuprofen [Motrin] 800 mg PO Q8HR PRN #30 tablet 11/24/17 Unknown Rx Vit Calc,Iron,Folic 1 each PO DAILY #30 tablet 11/24/17 Unknown Rx [ Vitamins] Ampicillin 500 mg PO Q6H #20 capsule 11/26/17 Unknown Rx metroNIDAZOLE [Flagyl] 500 mg PO Q12HR #10 tab 11/26/17 Unknown Rx Review of Systems All systems: negative - Physical Exam Breasts: Positive: deferred Cardiovascular: Regular rate Lungs: Positive: Clear to auscultation Abdomen: Positive: normal appearance Genitourinary (Female): Positive: normal external genitalia Vagina: Positive: normal moisture Uterus: Positive: enlarged Extremities: Positive: normal - Obstetrical FHR: category 1 Uterine Contraction Monitor Mode: External Uterine Contraction Pattern: Absent Results Result Diagrams: 12/02/19 16:20 All other labs normal. Ultrasound: report reviewed ([facility] 08/28) Assessment and Plan - Patient Problems (1) 38 weeks gestation of Onset Date: 12/02/19 Current Visit: Yes Status: Acute Plan to address problem: A: IUP @ 38 3/7 weeks Previous C Section +GBS P: Admit to L&D for Repeat C Section per [facility] (2) Previous section complicating Onset Date: 12/02/19 Current Visit: Yes Status: Acute
[2019-12-02] MEDS ORDERED: LACTATED RINGERS 1,000 ML IV SCH ×2 (16:00→18:00)
[2019-12-02] MEDS ORDERED: OXYTOCIN 20 UNIT/1000ML DRIP 20 UNITS/1,000 ML BAG IV SCH ×3 (16:00→20:00)
[2019-12-02] MEDS ORDERED: ceFAZolin/Water 2 GM/20 ML 2 GM/20 ML SYRINGE IV NR (16:00)
[2019-12-02] MEDS ORDERED: ONDANSETRON 4 MG/2 ML INJ IV PRN (16:07)
[2019-12-02] MEDS ORDERED: HYDROmorphone 1 MG/1 ML INJ IV PRN (16:07)
--- NOTE | 2019-12-02 16:16 | Anesthesia Consultation ---
Anesthesia Consult and Med Hx Date of service: 12/02/19 - Airway Anesthetic Teeth Evaluation: Good ROM Head & Neck: Adequate Mental/Hyoid Distance: Adequate Mallampati Class: Class II Intubation Access Assessment: Probably Good - Pulmonary Exam CTA: Yes - Cardiac Exam Cardiac Exam: RRR - Pre-Operative Health Status ASA Pre-Surgery Classification: ASA2 Proposed Anesthetic Plan: Epidural - Pulmonary Hx Smoking: No Hx Asthma: Yes Hx Respiratory Symptoms: No SOB: No COPD: No Home Oxygen Therapy: No Hx Pneumonia: No Hx Sleep Apnea: No - Cardiovascular System Hx Hypertension: No Hx Coronary Artery Disease: No Hx Heart Attack/AMI: No Hx Angina: No Hx Percutaneous Transluminal Coronary Angioplasty (PTCA): No Hx Cardia Arrhythmia: No Hx Pacemaker: No Hx Internal Defibrillator: No Hx Valvular Heart Disease: No Hx Heart Murmur: No Hx Peripheral Vascular Disease: No - Central Nervous System Hx Neuromuscular Disorder: No Hx Seizures: No CVA: No Hx Back Pain: No Hx Psychiatric Problems: No - Gastrointestinal Hx Ulcer: No Hx Gastroesophageal Reflux Disease: No - Endocrine Hx Renal Disease: No Hx End Stage Renal Disease: No Hx Cirrhosis: No Hx Liver Disease: No Hx Insulin Dependent Diabetes: No Hx Non-Insulin Dependent Diabetes: No Hx Thyroid Disease: No Hx Hypothyroidism: No Hx Hyperthyroidism: No - Hematic Hx Anemia: No Hx Sickle Cell Disease: No - Other Systems Hx Alcohol Use: No Hx Substance Use: No Hx Cancer: No Hx Obesity: Yes
--- NOTE | 2019-12-02 16:18 | Anesthesia Day of Surgery ---
Anesthesia Day of Surgery - Day of Surgery Patient Examined: Yes Patient H&P Reviewed: Yes Patient is NPO: Yes Beta Blockers: No Cardiac Clearance: No Pulmonary Clearance: No Brent's Test: N/A
[2019-12-02 16:35] LABS: Basophils # (Auto) 0.1 K/mm3 (0.0-0.1); Basophils % (Auto) 0.6 % (0.0-1.8); Eosinophils # (Auto) 0.1 K/mm3 (0.0-0.4); Eosinophils % (Auto) 0.8 % (0.0-4.3); Hemoglobin 11.4 gm/dl (10.1-14.3); Lymphocytes # (Auto) 1.6 K/mm3 (1.2-5.4); Lymphocytes % (Auto) 17.7 % (13.4-35.0); Mean Corpuscular HGB Conc 33 % (30-34); Mean Corpuscular Volume 77 fl (79-97); Monocytes # (Auto) 0.9 K/mm3 (0.0-0.8); Platelet Count 216 K/mm3 (140-440); Red Blood Count 4.53 M/mm3 (3.65-5.03); Red Cell Distribution Width 15.9 % (13.2-15.2)
[2019-12-02] MEDS ORDERED: FAMOTIDINE 20 MG/2 ML INJ IV ONE (16:36)
[2019-12-02] MEDS ORDERED: LIDOCAINE (2%) 20 MG/1 ML VIAL 20 ML MDV INFILTRATI ONE (17:55)
[2019-12-02] MEDS ORDERED: ePHEDrine SULFATE 50 MG/1 ML INJ IV PRN (17:55)
[2019-12-02] MEDS ORDERED: MINERAL OIL 30 ML ORAL LIQD PO PRN (17:55)
[2019-12-02] MEDS ORDERED: TERBUTALINE 1 MG/1 ML INJ SUB-Q PRN (17:55)
[2019-12-02] MEDS ORDERED: TERBUTALINE 1 MG/1 ML INJ IVP PRN (17:55)
[2019-12-02] MEDS ORDERED: OXYTOCIN DRIP 30 UNITS/500 ML BAG IV SCH (18:00)
[2019-12-02] MEDS ORDERED: WATER FOR IRRIG STERILE 1,500 ML BOTTLE IR ONE (18:10)
[2019-12-02] MEDS ORDERED: SODIUM CHLORIDE 0.9% IRR 1,500 ML BOTTLE IR ONE (18:10)
[2019-12-02] MEDS ORDERED: OXYTOCIN 10 UNIT/1 ML INJ ONE (18:13)
[2019-12-02] MEDS ORDERED: ONDANSETRON 4 MG/2 ML INJ ONE (18:15)
--- NOTE | 2019-12-02 18:39 | Operative Report ---
Operative Report Operative Report: Date of procedure: 12/02/2019 Pre-operative diagnosis: 1. Intrauterine at 38 3/7 weeks in labor 2. Previous C Section Post-operative diagnosis: same Procedure name(s): Repeat low transverse section Surgeon: Amaury Stover MD E Commerce Architect: None Anesthesia: Spinal anesthesia by Kimi Thompson CRNA EBL: 900 mL's Findings: A 3636 gm male Apgars 8 at 1 minute 9 at 5 minutes. Clear amniotic fluid. Normal uterus with lower uterine segment adhesions. Normal tubes and ovaries bilaterally. Procedure: After the patient was prepped and draped in usual sterile fashion, and after satisfactory level of spinal anesthesia was obtained, the skin knife was used to make a transverse skin incision through the previous skin scar. The incision was incised down to layer of the fascia, which was nicked in the midline and extended laterally using the Bovie cautery. The rectus muscles were dissected off the rectus fascia both superiorly and inferiorly. The rectus bellies in the midline, and the peritoneum was entered under direct visualization. The peritoneal incision was extended superiorly and inferiorly. A bladder flap was created and the bladder blade was then placed. The uterus was scored in a curvilinear linear fashion, entered in the midline revealing clear amniotic fluid. The 's head was delivered onto the surgical field and the oropharynx and nasopharynx were bulb suctioned. The rest of the 's body was delivered, the cord was doubly clamped and cut and the infant was handed to the awaiting respiratory team. The placenta was manually removed from the uterus, and the uterus removed from its normal anatomical position. After gentle uterine lavage, the incision was inspected and found to be without extensions. It was then closed in 2 layers using 0 Vicryl suture in a running interlocking fashion, the second layer imbricating the first. After good hemostasis was achieved, copious amounts or irrigation was performed, and the gutters were suctioned free of blood and blood clots. Next, the peritoneum was re-approximated using 3-0 Vicryl suture in a running interlocking fashion, and then the rectus muscles were loosely re-approximated using 3-0 Vicryl suture in a [id number] configuration. The fascia was then re-approximated using #1 Vicryl suture in running interlocking fashion. The subcutaneous layer was made hemostatic using Bovie cautery, and the skin edges re-approximated using 4-0 Vicryl suture in a sub-cuticular fashion. Patient tolerated the procedure well was transported to recovery in stable condition.
[2019-12-02] MEDS ORDERED: MAGNESIUM HYDROXIDE (MOM) ORAL LIQD UDC PO PRN (18:42)
[2019-12-02] MEDS ORDERED: LANOLIN/ZINC/DIMETHICONE (LANSINOH) 7 GM TP PRN (18:42)
[2019-12-02] MEDS ORDERED: SIMETHICONE 80 MG CHEW TAB PO PRN (18:42)
[2019-12-02] MEDS ORDERED: HYDROcodone/ACETAMINOPHEN 5-325 MG TAB PO PRN (18:42)
[2019-12-02] MEDS ORDERED: WITCH HAZEL/ GLYCERIN PAD TP PRN (18:42)
[2019-12-02] MEDS ORDERED: SENNOSIDES 8.6 MG TAB PO PRN (18:42)
[2019-12-02] MEDS ORDERED: MORPHINE 4 MG/1 ML INJ IV PRN (18:42)
[2019-12-02] MEDS ORDERED: NALOXONE 0.4 MG/1 ML INJ IV PRN (18:42)
[2019-12-02] MEDS ORDERED: ACETAMINOPHEN 325 MG TAB PO PRN (18:42)
[2019-12-02 19:50] LABS: Hematocrit 33.2 % (30.3-42.9); Hemoglobin 10.6 gm/dl (10.1-14.3); Mean Corpuscular HGB Conc 32 % (30-34); Mean Corpuscular Volume 78 fl (79-97); Platelet Count 199 K/mm3 (140-440); Red Blood Count 4.23 M/mm3 (3.65-5.03); Red Cell Distribution Width 16.2 % (13.2-15.2)
[2019-12-02] MEDS ORDERED: D5W/LACTATED RINGERS 1,000 ML IV SCH (20:00)
[2019-12-02] MEDS: KETOROLAC 30 MG/1 ML INJ IV PRN (21:24)
[2019-12-03] MEDS: ceFAZolin/NS 1 GM/50 ML 1 GM/50 ML BAG IV SCH ×2 (00:08→08:00)
[2019-12-03] MEDS: KETOROLAC 30 MG/1 ML INJ IV PRN (04:41)
[2019-12-03] MEDS ORDERED: TETANUS,DIPH,PERTUSS(ACELL) VACCINE 0.5 ML SYRINGE IM ONE (06:00)
[2019-12-03] MEDS: oxyCODONE /ACETAMINOPHEN 5-325MG TAB PO PRN ×2 (06:36→14:40)
[2019-12-03 06:55] LABS: Hematocrit 31.3 % (30.3-42.9)
[2019-12-03] MEDS ORDERED: PRENATAL VIT27-FE FUMARATE-FOLIC ACID VIT TAB PO SCH (10:00)
--- NOTE | 2019-12-03 11:50 | Progress Note ---
Assessment and Plan - Patient Problems (1) 38 weeks gestation of Onset Date: 12/02/19 Current Visit: Yes Status: Resolved (2) Previous section complicating Onset Date: 12/02/19 Current Visit: Yes Status: Resolved (3) Status post Onset Date: 12/03/19 Current Visit: No Status: Resolved Plan to address problem: A: S/P Repeat C Section - POD #1 Doing well Asymptomatic anemia - stable P: Continue RPOC Anticipate discharge tomorrow. Subjective - Subjective Date of service: 12/03/19 Principal diagnosis: s/p Repeat C Section - POD #1 Interval history: Pt is feeling well without complaints. Bleeding improved. Patient reports: appetite normal, voiding normally, pain well controlled, flatus, ambulating normally, no dizzy ambulation, no nauseated [place]: doing well, nursing well, bottle feeding Objective - Vital Signs Latest vital signs: Vital Signs Temp Pulse Resp BP BP Pulse Ox 12/03/19 07:20 97.8 F 78 20 116/78 12/03/19 04:45 98.2 F 103 H 20 120/70 97 12/03/19 01:19 98.2 F 103 H 20 120/70 96 12/02/19 20:30 98.1 F 69 18 111/75 100 12/02/19 19:45 88 17 100/61 12/02/19 19:30 85 20 105/48 12/02/19 19:15 94 H 14 97/45 12/02/19 19:00 97.7 F 96 H 17 97/46 12/02/19 18:55 94 H 22 98/38 95 12/02/19 18:50 79 16 104/40 95 12/02/19 18:45 97.7 F 84 16 103/48 95 12/02/19 16:00 97.8 F Intake and Output 12/02/19 12/03/19 12/03/19 22:59 06:59 14:59 Intake Total 1900 50 120 Output Total 200 Balance 1700 50 120 Intake: IV 1900 50 ANCEF/NS 1 GM/50 ML 1 gm 50 In 50 ml @ 100 mls/hr IV Q8H PRAVIN Rx#:[id number] Oral 120 Output: Urine 200 Other: Total, Intake Amount 120 # Voids Void 1 Weight 117.934 kg Estimated Blood Loss 900 - Exam Breasts: Present: deferred Abdomen: Present: normal appearance, soft Uterus: Present: normal, firm, fundal height below umbilicus Extremities: Present: normal Incision: Present: normal, dry, intact, dressed - Labs Labs: Abnormal lab results 12/02/19 12/02/19 12/03/19 Range/Units 16:20 19:36 06:46 Hgb 10.0 L (10.1-14.3) gm/dl MCV 77 L 78 L (79-97) fl MCH 25 L 25 L (28-32) pg RDW 15.9 H 16.2 H (13.2-15.2) % [place] % (Auto) 10.0 H (0.0-7.3) % [place] # 0.9 H (0.0-0.8) K/mm3 Seg Neutrophils % 70.9 H (40.0-70.0) % Laboratory Tests 12/02/19 12/02/19 12/02/19 16:20 16:20 19:36 WBC 8.9 8.8 RBC 4.53 4.23 Hgb 11.4 10.6 Hct 35.0 33.2 MCV 77 L 78 L MCH 25 L 25 L MCHC 33 32 RDW 15.9 H 16.2 H Plt Count 216 199 Lymph % (Auto) 17.7 [place] % (Auto) 10.0 H Eos % (Auto) 0.8 Baso % (Auto) 0.6 Lymph # 1.6 [place] # 0.9 H Eos # 0.1 Baso # 0.1 Seg Neutrophils % 70.9 H Seg Neutrophils # 6.3 Blood Type B POSITIVE Antibody Screen Negative 12/03/19 06:46 WBC RBC Hgb 10.0 L Hct 31.3 MCV MCH MCHC RDW Plt Count Lymph % (Auto) [place] % (Auto) Eos % (Auto) Baso % (Auto) Lymph # [place] # Eos # Baso # Seg Neutrophils % Seg Neutrophils # Blood Type Antibody Screen
[2019-12-03] MEDS: FERROUS SULFATE 325 MG TAB PO SCH (14:00)
[2019-12-03] MEDS ORDERED: MEASLES, MUMPS & RUBELLA 12,500 UNIT/0.5 ML VACCINE SUB-Q ONE (18:44)
[2019-12-03] MEDS: IBUPROFEN 800 MG TAB PO PRN (22:12)
[2019-12-04] MEDS: IBUPROFEN 800 MG TAB PO PRN (06:03)
[2019-12-04] MEDS: oxyCODONE /ACETAMINOPHEN 5-325MG TAB PO PRN (09:19)
[2019-12-04] MEDS: FERROUS SULFATE 325 MG TAB PO SCH (09:20)
--- NOTE | 2019-12-04 11:40 | Progress Note ---
Assessment and Plan - Patient Problems (1) 38 weeks gestation of Onset Date: 12/02/19 Current Visit: Yes Status: Resolved (2) Previous section complicating Onset Date: 12/02/19 Current Visit: Yes Status: Resolved (3) Status post Onset Date: 12/03/19 Current Visit: No Status: Resolved Plan to address problem: A: S/P Repeat C Section - POD #2 Doing well Asymptomatic anemia - stable P: May go home today. Subjective - Subjective Date of service: 12/04/19 Principal diagnosis: s/p Repeat C Section - POD #2 Interval history: Pt is feeling well without complaints. She is tolerating a reg diet without nausea or vomiting, ambulating and voiding without difficulty amd wants to go home today. Patient reports: appetite normal, voiding normally, pain well controlled, flatus, ambulating normally, no dizzy ambulation, no nauseated [place]: doing well, nursing well, bottle feeding Objective - Vital Signs Latest vital signs: Vital Signs Temp Pulse Resp BP BP Pulse Ox 12/04/19 09:19 20 12/04/19 08:35 98.5 F 95 H 18 128/74 95 12/04/19 04:15 98.0 F 96 H 20 121/58 12/03/19 15:50 98.2 F 85 20 126/50 12/03/19 13:22 106 H 20 113/58 Intake and Output 12/03/19 12/04/19 12/04/19 22:59 06:59 14:59 Intake Total 560 240 240 Balance 560 240 240 Intake: Oral 560 240 240 Other: Total, Intake Amount 240 240 240 # Voids Void 1 1 1 - Exam Abdomen: Present: normal appearance, soft Uterus: Present: normal, firm, fundal height below umbilicus Extremities: Present: normal Incision: Present: normal, dry, intact
--- NOTE | 2019-12-04 12:07 | Discharge Summary ---
Providers - Providers Date of Admission: 12/02/19 14:46 Date of discharge: 12/04/19 Attending physician: MO RASMUSSEN Primary care physician: MO RASMUSSEN Hospitalization Reason for admission: section, IUP at term Delivery: Procedure: section, repeat low transverse Episiotomy: none Laceration: none Incision: normal, dry, intact Other procedures: none complications: none Discharge diagnosis: IUP at term delivered [place] baby: male Hospital course: Pt is a 24yo BF EDC 12/13/19; EGA 38 3/7 weeks who presented to L&D from [facility] for delivery due to decreased movement and Morbid obesity. She was seen in the [facility] office and u/s showed echogenic amniotic fluid which was concerning. She received care at [facility] since 12 weeks and co-managed by [facility] for Obesity and previous C Section. She underwent an uncomplicated Repeat C Section, and by POD #2 she was tolerating a reg diet without nausea or vomiting, ambulating and voiding without difficulty. She was therefore discharged to home on POD #2 in stable condition. Condition at discharge: Good Disposition: DC-01 TO HOME OR SELFCARE - Discharge Diagnoses (1) 38 weeks gestation of Status: Resolved (2) Previous section complicating Status: Resolved (3) Status post Status: Resolved Plan - Discharge Medications Prescriptions: Ferrous Sulfate [Feosol 325 MG tab] 325 mg PO BID #60 tablet Ibuprofen [Motrin 800 MG tab] 800 mg PO Q6H PRN #30 tablet PRN Reason: Pain, Mild (1-3) HYDROcodone/APAP 5-325 [[place] 5-325 mg TAB] 1 each PO Q6HR PRN #30 tablet PRN Reason: Pain, Moderate (4-6) Vit-Fe Fumar-FA [ Vitamin] 1 each PO QDAY #30 tablet - Provider Discharge Summary Activity: routine, no sex for 6 weeks, no heavy lifting 4 weeks, no strenuous exercise Diet: routine Instructions: routine Additional instructions: [] Smoking cessation referral if applicable(refer to patient education folder for contact #) [] Refer to [facility] Booklet Call your doctor immediately for: * Fever > 100.5 * Heavy vaginal bleeding ( >1 pad per hour) * Severe persistent headache * Shortness of breath * Reddened, hot, painful area to leg or breast * Drainage or odor from incision. * Keep incision clean and dry at all times and follow doctor's instructions regarding bathing/showering - Follow up plan Follow up: MO RASMUSSEN MD [Primary Care Provider] - 14 Days DAVEY SUMMERS CNM [Advanced Practice Nurse] - 14 Days
[2019-12-04 17:03] VITALS: BP 138/76
== END 2019-12-04 16:40 | disposition home or self-care (01) | DRG 766 ==
LOC: TRG 14:45 → LD 14:46 → APU 14:46 → OB 20:32
PROVIDERS: ADMIT Obstetrics & Gynecology; ATTEND Obstetrics & Gynecology
PROC: 10D00Z1 Extraction of Products of Conception, Low, Open Approach (ICD-10-PCS; 2019-12-02)
PROC: 3E0234Z Introduction of Serum, Toxoid and Vaccine into Muscle, Percutaneous Approach (ICD-10-PCS; principal; 2019-12-03)
PROC: 3E0134Z Introduction of Serum, Toxoid and Vaccine into Subcutaneous Tissue, Percutaneous Approach (ICD-10-PCS; 2019-12-03)
DX: O99.214 Obesity complicating childbirth (principal); O34.211 Maternal care for low transverse scar from previous cesarean delivery; E66.01 Morbid (severe) obesity due to excess calories; O99.824 Streptococcus B carrier state complicating childbirth; O99.52 Diseases of the respiratory system complicating childbirth; J45.909 Unspecified asthma, uncomplicated; Z23 Encounter for immunization; Z37.0 Single live birth; Z3A.38 38 weeks gestation of pregnancy; O99.03 Anemia complicating the puerperium; D64.9 Anemia, unspecified
CPT/HCPCS: 36415; 85014; 85018; 85025; 85027; 86850; 86900; 86901; 90715; G0378; J0690; J1170; J1885; J2405; J2590; J2765; J7120; J7121